=== PATIENT | male | born 1995 | race Asian ===

== ENCOUNTER 2016-12-30 20:37 | Emergency (ER) | payer OTHER ==
[~2016-12-30] VITALS: Ht 188 cm; Wt 108.4 kg
[2016-12-30 21:18] LABS: PLATELET COUNT 258 K/uL (142-355)
[2016-12-30 21:25] LABS: POTASSIUM 3.5 mmol/L (3.6-5.2)
[2016-12-30 21:45] LABS: SODIUM 137 mmol/L (136-145)
== END 2016-12-30 22:20 | disposition home or self-care (01) ==
LOC: ED 20:37
DX: J32.2 Chronic ethmoidal sinusitis (principal); J32.0 Chronic maxillary sinusitis
CPT/HCPCS: 36415; 80053; 80307; 81000; 85027; 87081; 87804; 87880; 99283; G0479

== ENCOUNTER 2017-04-13 21:19 | Emergency (ER) | payer OTHER ==
[~2017-04-13] VITALS: Ht 188 cm; Wt 117.9 kg
[2017-04-13 22:15] LABS: PLATELET COUNT 242 K/uL (142-355)
[2017-04-13 22:21] LABS: POTASSIUM 3.3 mmol/L (3.6-5.2); SODIUM 137 mmol/L (136-145)
[2017-04-13 23:34] VITALS: BP 126/54; TEMP 99.5
== END 2017-04-13 23:38 | disposition home or self-care (01) ==
LOC: ED 21:19
PROVIDERS: Emergency Medicine
DX: B34.9 Viral infection, unspecified (principal)
CPT/HCPCS: 36415; 80053; 81000; 85027; 87081; 87804; 87880; 96374; 96375; 99284; J1885

== ENCOUNTER 2018-01-02 01:36 | Emergency (ER) | payer OTHER ==
[~2018-01-02] VITALS: Ht 188 cm; Wt 114.8 kg
[2018-01-02 02:18] VITALS: BP 144/82; TEMP 97.7
== END 2018-01-02 02:18 | disposition home or self-care (01) ==
LOC: ED 01:36
DX: K64.9 Unspecified hemorrhoids (principal)
CPT/HCPCS: 99282

== ENCOUNTER 2018-06-11 17:01 | Emergency (ER) | payer OTHER ==
[~2018-06-11] VITALS: Ht 185.4 cm; Wt 108.9 kg
[2018-06-11 17:17] VITALS: BP 154/81; TEMP 98.4
== END 2018-06-11 17:45 | disposition home or self-care (01) ==
LOC: ED 17:01
DX: H60.91 Unspecified otitis externa, right ear (principal)
CPT/HCPCS: 99281

== ENCOUNTER 2018-11-15 12:36 | Emergency (ER) | payer OTHER ==
[~2018-11-15] VITALS: Ht 185.4 cm; Wt 113.4 kg
[2018-11-15 13:00] VITALS: BP 160/90; TEMP 99.25
== END 2018-11-15 13:23 | disposition home or self-care (01) ==
LOC: ED 12:36
DX: T75.4XXA Electrocution, initial encounter (principal); W86.1XXA Exposure to industrial wiring, appliances and electrical machinery, initial encounter; Y92.511 Restaurant or cafe as the place of occurrence of the external cause
CPT/HCPCS: 99281

== ENCOUNTER 2019-07-16 20:30 | Emergency (ER) | payer OTHER ==
[~2019-07-16] VITALS: Ht 185.4 cm; Wt 111.1 kg
[2019-07-16] MEDS ORDERED: HORMONE INJ (20:50)
[2019-07-16 22:38] VITALS: BP 160/110; TEMP 98.4
== END 2019-07-16 22:38 | disposition home or self-care (01) ==
LOC: ED 20:30
DX: J11.1 Influenza due to unidentified influenza virus with other respiratory manifestations (principal); I10 Essential (primary) hypertension
CPT/HCPCS: 87502; 87651; 99283

== ENCOUNTER 2020-12-29 11:59 | Emergency (ER) | payer OTHER ==
[~2020-12-29] VITALS: Ht 185.4 cm; Wt 111.1 kg
[~2020-12-29 11:59] MED LIST: HORMONE INJ
[2020-12-29 12:25] LABS: PLATELET COUNT 271 K/uL (142-355)
[2020-12-29 12:34] LABS: POTASSIUM 3.6 mmol/L (3.6-5.2)
[2020-12-29 12:51] VITALS: BP 182/98; TEMP 97.8
== END 2020-12-29 12:51 | disposition home or self-care (01) ==
LOC: ED 11:59
PROVIDERS: Hospitalist
DX: J06.9 Acute upper respiratory infection, unspecified (principal); J40 Bronchitis, not specified as acute or chronic; Z20.822 Contact with and (suspected) exposure to COVID-19
CPT/HCPCS: 80048; 85027; 87502; 87635; 87651; 99283; U0003